=== PATIENT | male | born 1985 | race Caucasian/White ===

== ENCOUNTER 2016-09-13 19:21 | Emergency (ER) | payer SELFPAY ==
[2016-09-13 19:25] VITALS: BP 125/91; PULSE 69; TEMP 98.5; BMI 34.8
--- NOTE | 2016-09-13 19:37 | PDOC ---
History of Present Illness - General Chief Complaint: Pain Stated Complaint: STOMACH PAIN Time Seen by Provider: 09/13/16 19:33 - History of Present Illness Initial Comments: 09/13/16 19:36 Mr. Wilkins is a 30 year old male with no significant past medical history who presents to the emergency department with a 1 1/2 to 2 hour history of bloating and abdominal discomfort after a meal of pizza, beer, and pasta. Says he has had a small episode of loose stool 30 minutes ago as well. Mr. Wilkins says that this has happened before when he ate similar meals but never as bad. He patient denies chest pain, shortness of breath, headache and dizziness. Denies fever, chills, nausea, vomit, and constipation. Denies dysuria, frequency, urgency and hematuria. Allergies: Shellfish Past surgical history: None Social history: Drinks a beer or two socially PMD - None Past History - Past Medical History Allergies/Adverse Reactions: Allergies Allergy/AdvReac Type Severity Reaction Status Date / Time No Known Allergies Allergy Verified 09/13/16 19:24 Home Medications: Ambulatory Orders NK [No Known Home Medication] 07/02/15 - Psycho/Social/Smoking Cessation Hx Suicidal Ideation: No Smoking History: Never smoked Have you smoked in the past 12 months: No Hx Alcohol Use: No Drug/Substance Use Hx: No Review of Systems - Review of Systems Comments:: 09/13/16 19:37 GENERAL/CONSTITUTIONAL: No fever or chills. No weakness. HEAD, EYES, EARS, NOSE AND THROAT: No change in vision. No ear pain or discharge. No sore throat. CARDIOVASCULAR: No chest pain or shortness of breath RESPIRATORY: No cough, wheezing, or hemoptysis. GASTROINTESTINAL: +Endorses 1 episode of minimal loose stool. Otherwise says that he feels bloated and gassy. No nausea, vomiting, or constipation. GENITOURINARY: No dysuria, frequency, or change in urination. MUSCULOSKELETAL: No joint or muscle swelling or pain. No neck or back pain. SKIN: No rash NEUROLOGIC: No headache, vertigo, loss of consciousness, or change in strength/ sensation. ENDOCRINE: No increased thirst. No abnormal weight change HEMATOLOGIC/LYMPHATIC: No anemia, easy bleeding, or history of blood clots. ALLERGIC/IMMUNOLOGIC: No hives or skin allergy. 09/13/16 20:18 *Physical Exam - Vital Signs Last Vital Signs Temp Pulse Resp BP Pulse Ox 98.5 F 69 20 125/91 100 09/13/16 19:24 09/13/16 19:24 09/13/16 19:24 09/13/16 19:24 09/13/16 19:24 - Physical Exam Comments: 09/13/16 19:37 GENERAL: Awake, alert, and fully oriented, in no acute distress HEAD: No signs of trauma, normocephalic, atraumatic EYES: PERRLA, EOMI, sclera anicteric, conjunctiva clear ENT: Auricles normal inspection, hearing grossly normal, nares patent, oropharynx clear without exudates. Moist mucosa NECK: Normal ROM, supple, no lymphadenopathy, JVD, or masses LUNGS: No distress, speaks full sentences, clear to auscultation bilaterally HEART: Regular rate and rhythm, normal S1 and S2, no murmurs, rubs or gallops, peripheral pulses normal and equal bilaterally. ABDOMEN: +Tender to deep palpation superiorly midline. Hypoactive bowel sounds. Soft, nontender. No guarding, no rebound. No masses EXTREMITIES: Normal inspection, Normal range of motion, no edema. No clubbing or cyanosis. NEUROLOGICAL: Cranial nerves II through XII grossly intact. Normal speech, normal gait, no focal sensorimotor deficits SKIN: Warm, Dry, normal turgor, no rashes or lesions noted. 09/13/16 20:19 ED Treatment Course - LABORATORY CBC & Chemistry Diagram: 09/13/16 20:21 09/13/16 20:21 Medical Decision Making - Medical Decision Making 09/13/16 20:21 Mr. Wilkins appears to have pain/discomfort related to eating. Reports it only happens with foods like pasta, pizza, and beer. Suspect pain/discomfort caused by type of food; possibly gluten sensitive. Will order US to r/o Cholecystitis and give fluids. Also CBC/CMP ordered. 09/13/16 20:33 Patient reported increased pain and pain control - dilaudid ordered - pain subsided so dilaudid not administered. 09/13/16 21:31 US negative for titus. On further questioning patient reports family history of DMII and that he had lost 130 pounds in the last year and recently gained 40 back. Says that symptoms have been acting up since then. Advised to follow-up with a PCP for diabetic testing and counseled on healthy eating habits, diabetes risks, and exercise. 09/13/16 22:36 Reassessed, patient reports pain is decreasing. Also illicited no guarding, no rebound, no L/R abdominal or CVA tenderness. Will discharge to home. *DC/Admit/Observation/Transfer Diagnosis at time of Disposition: Abdominal bloating - Discharge Dispostion Disposition: HOME - Patient Instructions Printed Discharge Instructions: How to Avoid Gas, Lifestyle Changes as Effective as Drugs in Preventing Progression to Diabet Additional Instructions: Please make sure to follow-up with you previous care provider this week. Return if you experience any worsening symptoms or abdominal pain. - Attestations Physician Attestion: 09/13/16 20:25 I, Dr. Homar Hernandez, attest that this document has been prepared under my direction and personally reviewed by me in its entirety. I further attest, that it accurately reflects all work, treatment, procedures and medical decision -making performed by me.
[2016-09-13] MEDS ORDERED: SODIUM CHLORIDE 1,000 ML IV STA (20:09)
[2016-09-13] MEDS ORDERED: HYDROmorphone HCL CARPU-JECT 1 MG/1 ML DISP.SYRIN IVPB ONE (20:27)
[2016-09-13] MEDS ORDERED: HYDROmorphone HCL CARPU-JECT 1 MG/1 ML DISP.SYRIN ONE (20:30)
[2016-09-13 20:52] LABS: BASOPHIL 0.2 % (0-2.0); EOSINOPHIL 0.4 % (0-4.5); MCH 28.3 pg (25.7-33.7); MEAN CELL VOLUME 85.8 fl (80-96); MEAN PLT VOLUME 6.7 fl (7.5-11.1); NEUTROPHILS 80.3 % (42.8-82.8); PLATELET COUNT 201 K/MM3 (134-434); RDW 13.3 % (11.9-15.9)
[2016-09-13 21:15] LABS: ANION GAP 9 (8-16); CALCIUM 9.1 mg/dL (8.5-10.1); CO2 26 mmol/L (21-32); GLUCOSE,RANDOM 139 mg/dL (74-106)
[2016-09-13 21:19] LABS: ALK PHOS 104 U/L (45-117); BILIRUBIN,TOTAL 0.2 mg/dL (0.2-1.0); SGOT/AST 23 U/L (15-37); SGPT/ALT 36 U/L (12-78); TOT PROT 7.2 g/dl (6.4-8.2)
[2016-09-13 22:16] LABS: URINE APPEARANCE CLEAR; URINE BILIRUBIN NEGATIVE (NEGATIVE); URINE BLOOD 1+ (NEGATIVE); URINE COLOR YELLOW; URINE GLUCOSE (UA) 1+ (NEGATIVE); URINE KETONE TRACE (NEGATIVE); URINE LEUK ESTERASE NEGATIVE (NEGATIVE); URINE NITRITE NEGATIVE (NEGATIVE)
[2016-09-13 22:17] LABS: URINE PROTEIN 1+ (NEGATIVE)
[2016-09-13 22:18] LABS: URINE MUCUS MODERATE; URINE RBC 10 /hpf (0-3); URINE WBC 2 /hpf (3-5)
--- NOTE | 2016-09-13 23:06 | PDOC ---
Attending Attestation - Resident Resident Name: Homar Hernandez - HPI HPI: 09/13/16 23:02 30 yo male dev epigastric pain after eating dinner and drinking beer. He's had several episodes of epigastric pain in the past after eating - Physicial Exam PE: 09/13/16 23:06 heavy set 30 yo male w epigastric pain neck supple lungs cta b/l cvr [id number] abd epigastric tenderness,no rebound,no guarding ,no lower abd tenderness neuro no gross focal deficits - Medical Decision Making 09/13/16 23:08 labs reviewed, gallbladder US negative,symptoms resolved and pt discharged home IMP gerd/
== END 2016-09-13 23:01 | disposition home or self-care (01) ==
LOC: JER 19:21
PROC: 3E0337Z Introduction of Electrolytic and Water Balance Substance into Peripheral Vein, Percutaneous Approach (ICD-10-PCS; principal; 2016-09-13)
DX: R10.13 Epigastric pain (principal)
CPT/HCPCS: 36415; 76705-TC; 80053; 81003; 81015; 83690; 85025; 99284-25